=== PATIENT | male | born 1940 | race Caucasian/White ===

== ENCOUNTER 2018-06-11 22:38 | Emergency (ER) | payer MEDICARE, BC ==
[~2018-06-11 22:38] MED LIST: Amoxicillin/Clavulanate K 875-125 MG Tab ONE
--- NOTE | 2018-06-12 00:13 | EDM.PDOC ---
ED HPI GENERAL MEDICAL PROBLEM - General Chief Complaint: General Stated Complaint: SWOLLEN HAND Time Seen by Provider: 06/11/18 22:45 Source of Information: Reports: Patient History Limitations: Reports: No Limitations - History of Present Illness INITIAL COMMENTS - FREE TEXT/NARRATIVE: Patient is a 78 year old man on warfarin for atrial fibrillation with a defibrillator. He has been [place] in [place] and 2 days ago the gills scratched his left hand. It is now puffy and a little sore. No fever or chills and no other complaints. No other complaints. Onset: Gradual Onset Date: 06/09/18 Onset Time: 14:00 Duration: Day(s): (2.5), Getting Worse Location: Reports: Upper Extremity, Left Quality: Reports: Ache Severity: Mild Improves with: Reports: Cold Therapy, Immobilization Worsens with: Reports: Movement Context: Reports: Other ([place] fishing) Associated Symptoms: Reports: Other ED ROS GENERAL - Review of Systems Review Of Systems: See Below Constitutional: Reports: No Symptoms HEENT: Reports: No Symptoms Respiratory: Reports: No Symptoms Cardiovascular: Reports: No Symptoms Endocrine: Reports: No Symptoms GI/Abdominal: Reports: No Symptoms : Reports: No Symptoms Musculoskeletal: Reports: Hand Pain (And swelling.) Skin: Reports: Other (Bruising in left hand and arm. No erythema and no warmth) Neurological: Reports: No Symptoms Psychiatric: Reports: No Symptoms Hematologic/Lymphatic: Reports: No Symptoms Immunologic: Reports: No Symptoms ED EXAM, GENERAL - Physical Exam Exam: See Below Exam Limited By: No Limitations General Appearance: Alert, WD/WN, No Apparent Distress Eye Exam: Bilateral Eye: EOMI, Normal Fundi, Normal Inspection Ears: Normal External Exam, Normal Canal, Hearing Grossly Normal, Normal TMs Ear Exam: Bilateral Ear: Auricle Normal, Canal Normal, TM normal Nose: Normal Inspection, Normal Mucosa, No Blood Throat/Mouth: Normal Inspection, Normal Lips, Normal Teeth, Normal Gums, Normal Oropharynx, Normal Voice, No Airway Compromise Head: Atraumatic, Normocephalic Neck: Normal Inspection Respiratory/Chest: No Respiratory Distress, Lungs Clear, Normal Breath Sounds, No Accessory Muscle Use, Chest Non-Tender Cardiovascular: Normal Peripheral Pulses, Regular Rate, Rhythm, No Edema, No Gallop, No JVD, No Murmur, No Rub GI/Abdominal: Normal Bowel Sounds, Soft, Non-Tender, No Organomegaly, No Distention, No Abnormal Bruit, No Mass Back Exam: Normal Inspection, Full Range of Motion, NT Extremities: Non-Tender, Other (Left hand has bruising on the back of the hand with nontender swelling that when elevated can be milked out of the hand. No erythema and no warmth.) Neurological: Alert, Oriented, CN II-XII Intact, Normal Cognition, Normal Gait, Normal Reflexes, No Motor/Sensory Deficits Psychiatric: Normal Affect, Normal Mood Skin Exam: Ecchymosis (Left hand and arm.) Lymphatic: No Adenopathy Course - Vital Signs Text/Narrative:: Patient had a normal left hand x-ray, except for hand swelling. He had an elevated CRP but his WBC was normal. His INR was 4.4 and he has been adjusting the warfarin on his own since getting out of the hospital last week for low potassium. We will put him on Augmentin 875 mg po bid x 10 days, #20, rest, ice , elevate and jesusita wrap hand. No warfarin for Thursday or Thursday. They will be seen tomorrow in [place] and have another INR drawn. If it worsens, they will stop and see an orthopedist on the way back home to [place]. - Orders/Labs/Meds Orders: Active Orders 24 hr Category Date Time Status Hand 2V Lt [CR] Stat Exams 06/11/18 22:53 Taken Labs: Laboratory Tests 06/11/18 06/11/18 06/11/18 Range/Units 23:00 23:00 23:00 WBC 8.0 (4.0-11.0) K/uL RBC 4.72 (4.50-6.50) M/uL Hgb 14.3 (13.0-18.0) g/dL Hct 42.7 (40.0-54.0) % MCV 91 (76-96) fL MCH 30.3 (27.0-32.0) pg MCHC 33.5 (31.0-35.0) g/dL RDW 16.8 H (11.0-16.0) % Plt Count 271 (150-400) K/uL MPV 9.0 (6.0-10.0) fL Neut % (Auto) 69.2 (45.0-70.0) % Lymph % (Auto) 16.3 L (20.0-40.0) % [place] % (Auto) 12.8 H (3.0-10.0) % Eos % (Auto) 1.2 (1.0-5.0) % Baso % (Auto) 0.5 (0.0-0.5) % Neut # (Auto) 5.55 (2.00-7.50) K/uL Lymph # (Auto) 1.31 L (1.50-4.00) K/uL [place] # (Auto) 1.03 H (0.20-0.80) K/uL Eos # (Auto) 0.10 (0.04-0.40) K/uL Baso # (Auto) 0.04 (0.02-0.10) K/uL PT 40.3 H (9.0-11.5) sec INR 4.4 H* (1.0-3.5) Sodium 138 (136-145) mmol/L Potassium 3.0 L (3.5-5.1) mmol/L Chloride 102 (98-107) mmol/L Carbon Dioxide 24.6 (21.0-32.0) mmol/L Anion Gap 14.4 (5.0-15.0) mmol/L BUN 42 H (8-26) mg/dL Creatinine 2.75 H (0.70-1.30) mg/dL Est Cr Clr Drug Dosing TNP Estimated GFR (MDRD) 23 L (>60) MLS/MIN BUN/Creatinine Ratio 15.3 (6-25) Glucose 151 H (74-100) mg/dL Calcium 8.0 L (8.5-10.1) mg/dL Total Bilirubin 0.4 (0.0-1.0) mg/dL AST 25 (15-37) U/L ALT 29 (12-78) U/L Alkaline Phosphatase 60 (46-116) U/L C-Reactive Protein 64.9 H (0.0-3.0) mg/L Total Protein 7.1 (6.4-8.2) g/dL Albumin 2.8 L (3.4-5.0) g/dL Globulin 4.3 H (2.2-4.2) g/dL Albumin/Globulin Ratio 0.7 L (0.8-2.0) Departure - Departure Time of Disposition: 00:26 Disposition: Refer to Observation Condition: Good Clinical Impression: Cellulitis and abscess of hand Contusion of hand, left Qualifiers: Encounter type: initial encounter Qualified Code(s): S60.222A - Contusion of left hand, initial encounter - Discharge Information - My Orders Last 24 Hours: My Active Orders 06/11/18 22:53 Hand 2V Lt [CR] Stat - Assessment/Plan Last 24 Hours: My Active Orders 06/11/18 22:53 Hand 2V Lt [CR] Stat
--- NOTE | 2018-06-12 19:45 | CR ---
CLINICAL DATA: Infected right hand. Look for osteomyelitis. LEFT HAND, 11 JUNE 2018: There is significant soft tissue swelling over the dorsum of the hand. No acute fracture or dislocation. No lytic or blastic bone lesions. There are minimal osteoarthritic changes involving multiple joints. There is diffuse osteopenia. Job: [id number] [facility]
== END 2018-06-12 00:24 ==
LOC: LB.ED 22:38
DX: S60.222A Contusion of left hand, initial encounter (principal); L03.114 Cellulitis of left upper limb; L02.512 Cutaneous abscess of left hand; W56.52XA Struck by other fish, initial encounter
CPT/HCPCS: 36415; 73120-LT; 80053; 85025; 85610; 86140; 99283; 99284; A9270-GY